=== PATIENT | female | born 1990 | race Caucasian/White ===

== ENCOUNTER 2023-09-04 07:55 | Inpatient (IN) ==
[2023-09-04] MEDS ORDERED: OXYTOCIN 30 UNITS/NSS 30 UNITS/500 ML BAG IV PRN ×2 (08:14→13:00)
[2023-09-04] MEDS ORDERED: LIDOCAINE 1% LOCAL 20 ML VIAL INFIL PRN (08:14)
[2023-09-04] MEDS: LACTATED RINGER'S 1,000 ML IV PRN (08:30)
[2023-09-04] MEDS ORDERED: LIDOCAINE 2% MPF LOCAL 5 ML VIAL EPI PRN (08:39)
[2023-09-04] MEDS ORDERED: ROPIVACAINE 0.5% PF 5 MG/ML 20 ML VIAL EPI PRN (08:39)
[2023-09-04] MEDS ORDERED: diphenhydrAMINE 50 MG/ML VIAL IV PRN (08:39)
[2023-09-04] MEDS ORDERED: SODIUM CHLORIDE 0.9% PF INJ 10 ML VIAL EPI PRN (08:39)
[2023-09-04] MEDS ORDERED: ONDANSETRON INJ 2 MG/ML 2 ML VIAL IV PRN (08:39)
[2023-09-04] MEDS ORDERED: ePHEDrine sulfate 50 MG/ML AMP IV PRN (08:39)
[2023-09-04] MEDS ORDERED: fentaNYL citrate PF 100 MCG/2 ML VIAL EPI PRN (08:39)
[2023-09-04] MEDS ORDERED: NALOXONE HCL 1 MG in SODIUM CHLORIDE 0.9% 1,000 ML IV PRN (08:39)
[2023-09-04] MEDS ORDERED: BUPIVACAINE 0.25% PF 30 ML VIAL EPI PRN (08:39)
[2023-09-04] MEDS ORDERED: NALOXONE HCL 0.4 MG/1 ML VIAL/CARP IV PRN (08:39)
[2023-09-04] MEDS ORDERED: NALBUPHINE HCL 5 MG in SYRINGE 0 ML IV PRN (08:39)
[2023-09-04 08:45] LABS: Hematocrit (blood only) 34.5 % (37.0-47.0); Mean Corpuscular Hgb Conc 34.8 g/dL (32.0-36.0); Mean Corpuscular Volume 89.1 fL (80.0-100.0); Mean Platelet Volume 11.4 fL (9.4-12.4); Platelet Count 204 K/uL (130-400); RDW Coefficient of Variation 12.5 % (11.5-14.5); RDW Standard Deviation 40.3 fL (36.4-46.3); Red Blood Count 3.87 M/uL (4.20-5.40)
--- NOTE | 2023-09-04 08:48 | Anesthesiology Consultation ---
Date of Service September 04, 2023 Assessment & Plan Chart Review Chart Review: Acceptable Risk for Labor Epidural Consults Requested none ASA ASA2 Proposed Anesthesia Anesthesia Type: Labor Epidural Risk / Benefits Reviewed With: PT / POA / Parent / Guardian, Accepts Plan and Informed Consent Obtained History Allergies Allergy/AdvReac Type Severity Reaction Status Date / Time No Known Allergies Allergy Verified 09/01/23 15:06 Medications Home Medications Medication Instructions Recorded Confirmed Last Taken 21-iron fu-folic acid 1 tab PO DAILY 01/24/23 09/01/23 07/29/23 [ Complete] Past Medical History Medical History Tuberculosis exposure in 2010 History of chicken pox Exercise / Class Metabolic Activity II 4-5 Yardwork/Stairs/Walk up hill Past Family History Family History Denies family history of Ovarian cancer Breast cancer Colorectal cancer Past Surgical History Surgical History S/P knee surgery Right Past Anesthesia History No Hx of Anesthesia Complications and No Family Hx of Anesthesia Complications History of PONV No Hx of PONV and No Hx of Motion Sickness Social History Smoking Status: Never smoker Do You Dip or Chew Tobacco: No Hx Alcohol Use: No Hx Substance Use: No substance use type: does not use Physical Exam Vital Signs Last Vital Signs Temp 98.1 F 09/04/23 08:02 Pulse 80 09/04/23 08:02 Resp 22 09/04/23 08:02 BP 116/74 09/04/23 08:02 ENMT Mouth: no dentition abnormality Thyromental Distance: > or= 3.5 Finger Breadths Mallampati Class: II Neck normal visual inspection Respiratory normal respiratory effort Auscultation: lungs clear to auscultation bilaterally Cardiovascular Rate/Rhythm: regular rate and regular rhythm Testing Laboratory Results 09/04/23 08:23
[2023-09-04] MEDS: BUPIVACAINE 0.25% PF 30 ML VIAL ONE (08:58)
[2023-09-04] MEDS: LIDOCAINE 2%/EPINEPHRINE 1:200,000 20 ML PF ONE (08:58)
[2023-09-04] MEDS: fentANYL 2 MCG/ML BUPIVacaine 0.125%-NSS 100ML BAG EPI PRN (08:58)
[2023-09-04] MEDS: fentaNYL citrate PF 100 MCG/2 ML VIAL ONE (09:23)
--- NOTE | 2023-09-04 09:33 | Anesthesia Procedure Note ---
Date of Service September 04, 2023 Anesthesia Epidural Re-Dose Vital Signs Temp Pulse Resp BP Pulse Ox 98.1 F 77 22 127/77 99 09/04/23 09:19 09/04/23 09:30 09/04/23 09:19 09/04/23 09:29 09/04/23 09:30 Notes Pain Intensity: 7 Dilatation (cm): 4.0 Effacement (%): 90 Called by nursing to evaluate epidural as the patient is having increased pain. The epidural was re-dosed with the following medications after negative aspiration of the epidural catheter for CSF/HEME. 3mL of 0.25% Bupivacaine and 75mcg fentanyl After Epidural Re-Dose Mental Status: alert / awake / arousable Pain: improving with treatment Airway Patency, RR, SpO2: stable & adequate BP & HR: stable & adequate
[2023-09-04] MEDS: fentANYL 2 MCG/ML BUPIVacaine 0.125%-NSS 100ML BAG ONE (10:46)
[2023-09-04] MEDS: ePHEDrine sulfate 50 MG/ML AMP ONE (10:46)
[2023-09-04] MEDS: BUPIVACAINE 0.25% PF 30 ML VIAL EPI STA (11:00)
[2023-09-04] MEDS: SODIUM CHLORIDE 0.9% PF INJ 10 ML VIAL ONE (11:00)
[2023-09-04] MEDS: fentaNYL citrate PF 100 MCG/2 ML VIAL EPI STA (11:01)
[2023-09-04] MEDS: LIDOCAINE 2%/EPINEPHRINE 1:200,000 20 ML PF EPI STA (11:01)
[2023-09-04] MEDS: SODIUM CHLORIDE 0.9% PF INJ 10 ML VIAL EPI STA (11:02)
[2023-09-04] MEDS: OXYTOCIN 30 UNITS/NSS 30 UNITS/500 ML BAG IV PRN (11:40)
--- NOTE | 2023-09-04 12:48 | Delivery Summary ---
Vaginal Delivery Summary Date of Service September 04, 2023 Vaginal Delivery Summary and 2nd Degree LAC Spontaneous vaginal delivery the patient arrived at term in active labor requested epidural and this was received artificial rupture membranes for clear fluid she did require some minimal Pitocin to increase her contractions but then delivered over a total of 1 push delivering a baby in occiput anterior position clear fluid no nuchal cord gentle traction on the baby no excessive force easy delivery live vigorous male infant Cord clamped and cut cord blood obtained placenta removed with traction IV Pitocin started uterine tone improved second- degree tear repaired with 3-0 Vicryl sponge and instrument counts correct quantitative blood loss 25 mL [facility] Vaginal Delivery Charge Delivery Type Details: and 2nd Degree LAC
[2023-09-04] MEDS ORDERED: HYDROCORTISONE ACETATE 25 MG SUPP PR PRN (13:00)
[2023-09-04] MEDS ORDERED: bisacodyL 10 MG SUPP PR PRN (13:00)
[2023-09-04] MEDS: IBUPROFEN 600 MG TAB PO PRN (14:15)
[2023-09-04] MEDS: ACETAMINOPHEN 325 MG TAB PO PRN (15:55)
[2023-09-04] MEDS: BENZOCAINE 20% SPRY 85 APPLN/85 GM CAN EXT PRN (17:08)
[2023-09-04] MEDS: DOCUSATE SODIUM 100 MG CAP PO SCH (21:06)
[2023-09-05 06:17] LABS: Hematocrit (blood only) 31.1 % (37.0-47.0); Hemoglobin 10.6 g/dl (12.0-16.0); Mean Corpuscular Hemoglobin 30.6 pg (25.0-34.0); Mean Corpuscular Hgb Conc 34.1 g/dL (32.0-36.0); Mean Corpuscular Volume 89.9 fL (80.0-100.0); Mean Platelet Volume 11.1 fL (9.4-12.4); Platelet Count 183 K/uL (130-400); RDW Coefficient of Variation 12.8 % (11.5-14.5); RDW Standard Deviation 41.7 fL (36.4-46.3); Red Blood Count 3.46 M/uL (4.20-5.40); White Blood Count 7.48 K/ul (4.8-10.8)
--- NOTE | 2023-09-05 06:22 | Obstetrical Progress Note ---
Date of Service <Can Montanez MD - Last Filed: 09/05/23 07:40> September 05, 2023 Assessment & Plan <Can Montanez MD - Last Filed: 09/05/23 07:40> (1) (spontaneous vaginal delivery): Plan 33 yo , status post on 09/03, w/ 2nd degree laceration - Pt doing well clinically. Feels well today. Eating well, voiding well, ambulating well. Pain well controlled with PRN pain meds. - Routine care -- OOB, ambulation, diet progression as tolerated Vital Signs reviewed and WNL. (Tmax at 36.7) Hemoglobin Reviewed. 12.0 (09/03) 10.6 (today). Blood Type: A+, GBS-, Rubella Immune. Encourage ambulation, monitor and control pain with Motrin PRN, resume regular diet, monitor lochia. Breast feeding encouraged. After discharge will have 6 week follow-up with Dr. Michelle. Pt counselled on discharge instructions, in the event they're going home today. <Lola Michelle MD, FACOG - Last Filed: 09/05/23 18:28> (1) (spontaneous vaginal delivery): Subjective <Can Montanez MD - Last Filed: 09/05/23 07:40> Ambulation: ambulating normally Voiding: no voiding problems Passing Gas:: Yes Diet Tolerance:: regular diet Lochia:: Small Feeding Type:: breast feeding (this and pumping) Current Pain Level(1-10): 6 (cramping during feeding) Constitutional: no fever or no chills Respiratory: no cough, no dyspnea or no wheezing Cardiovascular: no chest pain or no palpitations Gastrointestinal: no abdominal pain, no nausea, no vomiting, no constipation or no diarrhea/loose stools Genitourinary (female): no dysuria, no urinary frequency or no urinary urgency Integumentary: no rash or no new lesions Neurologic: no tingling or no numbness Physical Exam <Can Montanez MD - Last Filed: 09/05/23 07:40> Constitutional WD/WN, vitals as above Respiratory normal respiratory effort, lungs clear to auscultation Cardiovascular RRR, no murmur, no edema Gastrointestinal (Abdomen) fundus noted below umbilicus Psychiatric A+Ox3, euthymic affect Results & Data <Can Montanez MD - Last Filed: 09/05/23 07:40> Vital Signs (Past 12 Hours) Vital Signs Temp Pulse Resp BP Pulse Ox O2 Del Method 09/05/23 04:30 36.5 C 80 18 114/73 97 Room Air 09/05/23 00:00 36.5 C 86 18 109/67 97 Room Air 09/04/23 20:00 36.7 C 76 18 120/70 97 Room Air Supervising Physician <Lola Michelle MD, FACOG - Last Filed: 09/05/23 18:28> Co-Signing Physician Notes Resident Physician Supervision Note: I was present with Dr. Ashby] during the history and exam. I discussed the case with the resident and agree with the findings and plan as documented in the note. Any exceptions or clarifications are listed here: [None] Documented By: Lola Michelle MD, FACOG
[2023-09-05] MEDS: PRENATAL VITAMIN 1 TAB PO SCH (07:59)
[2023-09-05] MEDS: bisacodyL 5 MG TABEC PO SCH (19:48)
--- NOTE | 2023-09-06 05:39 | Obstetrical Progress Note ---
Date of Service September 06, 2023 Assessment & Plan (1) (spontaneous vaginal delivery): Plan 33 yo , status post on 09/03, w/ 2nd degree laceration - Pt doing well clinically. Feels well today. Eating well, voiding well, ambulating well. Pain well controlled with PRN pain meds. - Routine care -- OOB, ambulation, diet progression as tolerated Vital Signs reviewed and WNL. (Tmax at 37.2 C) Hemoglobin Reviewed. 12.0 (09/03), 10.6 (09/04). Blood Type: A+, GBS-, Rubella Immune. Encourage ambulation, monitor and control pain with Motrin PRN, resume regular diet, monitor lochia. Breast feeding encouraged. After discharge will have 6 week follow-up with Dr. Michelle. Pt counselled on discharge instructions, as they're planning on going home today. Subjective Ambulation: ambulating normally Voiding: no voiding problems Passing Gas:: Yes Diet Tolerance:: regular diet Lochia:: Small Feeding Type:: breast feeding Current Pain Level(1-10): 5 (cramping during feeding) Constitutional: no fever or no chills Respiratory: no cough, no dyspnea or no wheezing Cardiovascular: no chest pain or no palpitations Gastrointestinal: no abdominal pain, no nausea, no vomiting, no constipation or no diarrhea/loose stools Genitourinary (female): no dysuria, no urinary frequency or no urinary urgency Integumentary: no rash or no new lesions Neurologic: no tingling or no numbness Physical Exam Constitutional WD/WN, vitals as above Respiratory normal respiratory effort, lungs clear to auscultation Cardiovascular RRR, no murmur, no edema Gastrointestinal (Abdomen) Inspection/Auscultation: abdomen normal to inspection, normal bowel sounds and + significant pannus (post pannus) Percussion/Palpation: + abdomen tender (more tenderness, cramping w/ ) Psychiatric A+Ox3, euthymic affect Results & Data Vital Signs (Past 12 Hours) Vital Signs Temp Pulse Resp BP Pulse Ox O2 Del Method 09/05/23 23:45 36.6 C 80 20 109/70 97 Room Air 09/05/23 20:00 36.9 C 86 20 109/70 98 Room Air
[2023-09-06] MEDS: DIPHTHER/TETAN/PERTUS Vaccine (Tdap, Adol/Adult) 0.5mL IM ONE (07:25)
== END 2023-09-06 10:45 | disposition home or self-care (01) | DRG 807 ==
LOC: OPB 07:55 → 4S1 07:55 → 4E2 15:28